=== PATIENT | male | born 1930 | race Caucasian/White ===

== ENCOUNTER 2017-11-23 18:04 | Inpatient (IN) | payer BC, MEDICAID, MEDICARE ==
[2017-11-23] MEDS: LIDOCAINE 1% (MDV) 10 ML INJ INJ (18:30)
[2017-11-23] MEDS: morphine 4 MG/ML VIAL IV (18:41)
[2017-11-23] MEDS: LIDOCAINE 1% (MDV) 20 ML INJ INJ (18:46)
[2017-11-23 19:01] LABS: ADD MAN DIFF? NO
[2017-11-23 19:04] LABS: WHITE BLOOD COUNT 8.5 10^3/ul (4.8-10.8)
[2017-11-23 19:04] LABS: BASOPHILS % 0.4 % (0.0-2.0); EOSINOPHILS # 0.2 10^3/ul (0.0-0.5); EOSINOPHILS % 1.9 % (0.0-7.0); HEMATOCRIT 40.4 % (42.0-52.0); LYMPHOCYTES # 0.9 10^3/ul (0.8-2.9); LYMPHOCYTES % 10.8 % (15.0-51.0); MEAN CORPUSCULAR HEMOGLOBIN 29.1 pg (29.0-33.0); MEAN CORPUSCULAR HGB CONC 32.2 g/dl (32.0-37.0); MEAN CORPUSCULAR VOLUME 90.4 fl (82.0-101.0); MEAN PLATELET VOLUME 11.9 fl (7.4-10.4); MONOCYTE # 0.5 10^3/ul (0.3-0.9); MONOCYTES % 5.8 % (0.0-11.0); NEUTROPHIL # 6.8 10^3/ul (1.6-7.5); NEUTROPHILS % 80.7 % (39.0-77.0); PLATELET COUNT 130 10^3/UL (140-415); RED BLOOD COUNT 4.47 10^6/ul (4.70-6.10); RED CELL DISTRIBUTION WIDTH 14.6 % (11.5-14.5)
[2017-11-23 19:23] LABS: ANION GAP 15 (8-16); BLOOD UREA NITROGEN 29 mg/dl (7-20); CALCIUM 7.3 mg/dl (8.4-10.2); CARBON DIOXIDE 26 mmol/L (21-31); CHLORIDE 104 mmol/L (97-110); GLUCOSE 204 mg/dl (70-220); POTASSIUM 3.3 mmol/L (3.5-5.1); SODIUM 142 mmol/L (135-144)
[2017-11-23 20:22] LABS: SYN FLD MN % 3.8 &; SYN FLD PMN % 96.2 % (0.0-25.0)
[2017-11-23 20:27] LABS: FLUID GLUCOSE 150 mg/dl; FLUID TYPE SYNOVIAL FLUID
[2017-11-23 20:40] LABS: FLUID TOTAL PROTEIN 4.5 g/dl
[2017-11-23 20:50] LABS: SYN FLD WBC 39340 /cmm (0-150)
[2017-11-23 20:51] LABS: SYN FLD SOURCE LEFT KNEE
[2017-11-23 20:51] LABS: SYN FLD CLARITY BLOODY; SYN FLD COLOR RED; SYN FLD CRYSTALS URIC ACID CRYSTALS (None seen)
[2017-11-23] MEDS ORDERED: CEFTRIAXONE 2 GM/50 ML (PMX) 50 ML IVPB (21:00)
[2017-11-23] MEDS: HYDROCODONE/APAP (5/325) TAB PO (21:23)
[2017-11-23] MEDS: CIPROFLOXACIN 400MG/D5W 200 ML IVPB (21:24)
[2017-11-23] MEDS ORDERED: ACETAMINOPHEN 325 MG TAB PO (21:30)
[2017-11-23] MEDS ORDERED: ONDANSETRON 4 MG INJ IV (21:30)
[2017-11-23 21:35] LABS: C-REACTIVE PROTEIN 21.8 mg/dl (0.0-0.9)
[2017-11-23 22:09] LABS: FLUID LD 4846 U/L; FLUID TYPE SYNOVIAL FLUID
[2017-11-23 22:14] LABS: ERYTHROCYTE SEDIMENTATION RATE 59 mm/Hr (0-20)
[2017-11-23] MEDS: VANCOMYCIN 1 GM (PMX) 250 ML IVPB (22:36)
[2017-11-24] MEDS ORDERED: ALBUTEROL/IPRATROPIUM (NEB) 3 ML AMP HHN (01:30)
[2017-11-24] MEDS ORDERED: ACETAMINOPHEN 325 MG TAB PO (01:30)
[2017-11-24] MEDS ORDERED: ALPRAZOLAM 0.5 MG TAB PO (01:30)
[2017-11-24] MEDS ORDERED: NACL 0.9% 3 ML SYG IV (01:30)
[2017-11-24] MEDS: HYDROCODONE/APAP (5/325) TAB PO ×4 (04:54→23:29)
[2017-11-24] MEDS: PANTOPRAZOLE (EC) 40 MG TAB PO (06:16)
[2017-11-24] MEDS ORDERED: AMIKACIN IV PER PHARMACY XX (09:00)
[2017-11-24] MEDS ORDERED: VANCOMYCIN IV PER PHARMACY XX (09:00)
[2017-11-24] MEDS: VANCOMYCIN 1 GM 250 ML IVPB (09:01)
[2017-11-24] MEDS: METOPROLOL (XL) 100 MG TAB PO ×2 (09:02→21:11)
[2017-11-24] MEDS: NIACIN 500 MG TAB PO (09:03)
[2017-11-24] MEDS: MESALAMINE (EC) 400 MG CAP PO ×2 (09:03→21:10)
[2017-11-24] MEDS: AMLODIPINE 5 MG TAB PO (09:03)
[2017-11-24] MEDS: FUROSEMIDE 40 MG TAB PO (09:03)
[2017-11-24] MEDS: LISINOPRIL 20 MG TAB PO (09:03)
[2017-11-24] MEDS: APIXABAN 5 MG TABLET PO ×2 (09:12→21:11)
[2017-11-24] MEDS: AMIKACIN 400 MG in SOD CHLORIDE 0.9% 100 ML IVPB (11:00)
[2017-11-24 12:15] LABS: ADD UMIC YES; UR ASCORBIC ACID NEGATIVE (NEGATIVE); UR BACTERIA FEW /HPF (NONE SEEN); UR BILIRUBIN (Dip) NEGATIVE (NEGATIVE); UR BLOOD (Dip) 1+ mg/dL (NEGATIVE); UR CLARITY CLEAR (CLEAR); UR COLOR YELLOW (YELLOW); UR GLUCOSE (Dip) NEGATIVE (NEGATIVE); UR KETONES (Dip) NEGATIVE (NEGATIVE); UR LEUKOCYTE ESTERASE (Dip) NEGATIVE Leu/ul (NEGATIVE); UR NITRITE (Dip) NEGATIVE (NEGATIVE); UR RBC 1 /HPF (0-5); UR SPECIFIC GRAVITY (Dip) 1.019 (1.003-1.030); UR TOTAL PROTEIN (Dip) 2+ mg/dl (NEGATIVE); UR UROBILINOGEN (Dip) 2+ mg/dL (NEGATIVE); UR WBC 1 /HPF (0-5)
[2017-11-24 12:27] LABS: CREATININE,URINE RANDOM 144.16 mg/dl (20-370)
[2017-11-24 12:27] LABS: SODIUM,URINE RANDOM 59 mmol/L (30-90)
[2017-11-24] MEDS: predniSONE 20 MG TAB PO ×2 (16:05→21:12)
[2017-11-24] MEDS: COLCHICINE 0.6 MG TAB PO ×2 (17:29→21:10)
[2017-11-24] MEDS: CIPROFLOXACIN 250 MG TAB PO (17:29)
[2017-11-24] MEDS: LATANOPROST 0.005% 2.5 ML OPH BOTH EYES (21:09)
[2017-11-24] MEDS: ATORVASTATIN 80 MG TAB PO (21:10)
[2017-11-24] MEDS: TAMSULOSIN (SR) 0.4 MG CAP PO (21:11)
[2017-11-25] MEDS: PANTOPRAZOLE (EC) 40 MG TAB PO (05:52)
[2017-11-25] MEDS: CIPROFLOXACIN 250 MG TAB PO (05:52)
[2017-11-25] MEDS: HYDROCODONE/APAP (5/325) TAB PO ×2 (05:52→20:25)
[2017-11-25 06:15] LABS: ADD MAN DIFF? NO
[2017-11-25 06:21] LABS: ABNORMAL IP MESSAGE 1; EOSINOPHILS % 0.2 % (0.0-7.0); HEMATOCRIT 38.3 % (42.0-52.0); HEMOGLOBIN 12.2 g/dl (14.0-18.0); LYMPHOCYTES # 0.5 10^3/ul (0.8-2.9); LYMPHOCYTES % 5.5 % (15.0-51.0); MEAN CORPUSCULAR HGB CONC 31.9 g/dl (32.0-37.0); MEAN PLATELET VOLUME 12.9 fl (7.4-10.4); MONOCYTE # 0.1 10^3/ul (0.3-0.9); MONOCYTES % 1.7 % (0.0-11.0); NEUTROPHIL # 7.5 10^3/ul (1.6-7.5); NEUTROPHILS % 92.2 % (39.0-77.0); PLATELET COUNT 131 10^3/UL (140-415); POSITIVE DIFF @See below; RED BLOOD COUNT 4.21 10^6/ul (4.70-6.10); RED CELL DISTRIBUTION WIDTH 14.2 % (11.5-14.5)
[2017-11-25 06:21] LABS: WHITE BLOOD COUNT 8.2 10^3/ul (4.8-10.8)
[2017-11-25 07:02] LABS: ALANINE AMINOTRANSFERASE 12 IU/L (13-69); ALBUMIN 3.4 g/dl (3.3-4.9); ALBUMIN/GLOBULIN RATIO 0.87; ALKALINE PHOSPHATASE 87 IU/L (42-121); ANION GAP 14 (8-16); ASPARTATE AMINO TRANSFERASE 22 IU/L (15-46); BILIRUBIN,INDIRECT 1.2 mg/dl (0-1.1); BILIRUBIN,TOTAL 1.2 mg/dl (0.2-1.3); BLOOD UREA NITROGEN 39 mg/dl (7-20); CARBON DIOXIDE 29 mmol/L (21-31); CHLORIDE 104 mmol/L (97-110); CHOL/HDL RATIO 4.9 RATIO; CHOLESTEROL 129 mg/dl (100-200); CREATININE 2.36 mg/dl (0.61-1.24); GLUCOSE 192 mg/dl (70-220); HDL CHOLESTEROL 26 mg/dl (31-75); LDL CHOLESTEROL,CALCULATED 87 mg/dl; PHOSPHORUS 3.6 mg/dl (2.5-4.9); POTASSIUM 4.1 mmol/L (3.5-5.1); SODIUM 143 mmol/L (135-144); TOTAL PROTEIN 7.3 g/dl (6.1-8.1); TRIGLYCERIDES 80 mg/dl (0-149)
[2017-11-25 07:33] LABS: MAGNESIUM 0.5 mg/dl (1.7-2.5)
[2017-11-25] MEDS: VANCOMYCIN 1 GM 250 ML IVPB (08:10)
[2017-11-25] MEDS: METOPROLOL (XL) 100 MG TAB PO ×2 (08:36→20:23)
[2017-11-25] MEDS: predniSONE 20 MG TAB PO ×2 (08:37→20:23)
[2017-11-25] MEDS: COLCHICINE 0.6 MG TAB PO ×3 (08:37→20:21)
[2017-11-25] MEDS: AMLODIPINE 5 MG TAB PO (08:37)
[2017-11-25] MEDS: APIXABAN 5 MG TABLET PO ×2 (08:37→20:22)
[2017-11-25] MEDS: MESALAMINE (EC) 400 MG CAP PO ×2 (08:37→20:21)
[2017-11-25] MEDS: NIACIN 500 MG TAB PO (08:37)
[2017-11-25 09:01] LABS: HEMOGLOBIN A1C 6.8 % (0-5.9)
[2017-11-25 09:09] LABS: URIC ACID 8.2 mg/dl (3.1-7.9)
[2017-11-25] MEDS: MAGNESIUM SULFATE 4 GM/100 ML 100 ML IVPB (09:25)
[2017-11-25] MEDS ORDERED: MAGNESIUM SULFATE 3 GM in DEXTROSE 5% 100 ML IVPB (09:30)
[2017-11-25] MEDS: DOCUSATE SODIUM 100 MG CAP PO ×2 (12:00→20:22)
[2017-11-25] MEDS: DIGOXIN 0.125 MG TAB PO (13:02)
[2017-11-25] MEDS: SOD CHLORIDE 0.45% 1,000 ML IV ×2 (13:03→22:00)
[2017-11-25 13:21] LABS: CREATININE, RANDOM URINE 168 mg/dL (20-370); MICROALBUMIN 18.9 mg/dL; MICROALBUMIN/CREATININE RATIO 113 (<30)
[2017-11-25] MEDS: LATANOPROST 0.005% 2.5 ML OPH BOTH EYES (20:20)
[2017-11-25] MEDS: TAMSULOSIN (SR) 0.4 MG CAP PO (20:22)
[2017-11-25] MEDS: ATORVASTATIN 80 MG TAB PO (20:23)
[2017-11-26] MEDS: SOD CHLORIDE 0.45% 1,000 ML IV ×2 (02:31→18:22)
[2017-11-26] MEDS: HYDROCODONE/APAP (5/325) TAB PO ×2 (02:31→09:52)
[2017-11-26] MEDS: PANTOPRAZOLE (EC) 40 MG TAB PO (05:32)
[2017-11-26 06:20] LABS: ADD MAN DIFF? NO
[2017-11-26 06:28] LABS: BASOPHILS % 0.2 % (0.0-2.0); HEMATOCRIT 36.5 % (42.0-52.0); HEMOGLOBIN 11.9 g/dl (14.0-18.0); LYMPHOCYTES # 0.6 10^3/ul (0.8-2.9); LYMPHOCYTES % 5.1 % (15.0-51.0); MEAN CORPUSCULAR HEMOGLOBIN 28.7 pg (29.0-33.0); MEAN CORPUSCULAR HGB CONC 32.6 g/dl (32.0-37.0); MEAN PLATELET VOLUME 12.3 fl (7.4-10.4); MONOCYTE # 0.4 10^3/ul (0.3-0.9); MONOCYTES % 3.5 % (0.0-11.0); NEUTROPHILS % 90.9 % (39.0-77.0); PLATELET COUNT 190 10^3/UL (140-415); RED BLOOD COUNT 4.15 10^6/ul (4.70-6.10); RED CELL DISTRIBUTION WIDTH 14.3 % (11.5-14.5)
[2017-11-26 06:28] LABS: WHITE BLOOD COUNT 12.1 10^3/ul (4.8-10.8)
[2017-11-26 06:47] LABS: ANION GAP 17 (8-16); BLOOD UREA NITROGEN 48 mg/dl (7-20); CALCIUM 6.9 mg/dl (8.4-10.2); CARBON DIOXIDE 23 mmol/L (21-31); CHLORIDE 102 mmol/L (97-110); CREATININE 2.04 mg/dl (0.61-1.24); GLUCOSE 162 mg/dl (70-220); MAGNESIUM 1.8 mg/dl (1.7-2.5); PHOSPHORUS 3.1 mg/dl (2.5-4.9); POTASSIUM 3.9 mmol/L (3.5-5.1); SODIUM 138 mmol/L (135-144)
[2017-11-26] MEDS: NIACIN 500 MG TAB PO (09:51)
[2017-11-26] MEDS: predniSONE 20 MG TAB PO ×2 (09:51→20:58)
[2017-11-26] MEDS: DOCUSATE SODIUM 100 MG CAP PO ×2 (09:51→21:00)
[2017-11-26] MEDS: MESALAMINE (EC) 400 MG CAP PO ×2 (09:51→20:58)
[2017-11-26] MEDS: COLCHICINE 0.6 MG TAB PO ×3 (09:51→20:57)
[2017-11-26] MEDS: APIXABAN 5 MG TABLET PO ×2 (09:51→20:59)
[2017-11-26] MEDS: METOPROLOL (XL) 100 MG TAB PO ×2 (09:52→20:58)
[2017-11-26] MEDS: AMLODIPINE 5 MG TAB PO (09:53)
[2017-11-26] MEDS: MAGNESIUM SULFATE 2 GM/50 ML 50 ML IVPB (09:58)
[2017-11-26] MEDS: traMADol 50 MG TAB PO ×2 (13:54→20:59)
[2017-11-26] MEDS: ATORVASTATIN 80 MG TAB PO (20:58)
[2017-11-26] MEDS: TAMSULOSIN (SR) 0.4 MG CAP PO (20:59)
[2017-11-26] MEDS: LATANOPROST 0.005% 2.5 ML OPH BOTH EYES (21:00)
[2017-11-27] MEDS: SOD CHLORIDE 0.45% 1,000 ML IV (03:53)
[2017-11-27] MEDS: traMADol 50 MG TAB PO (04:02)
[2017-11-27 06:02] LABS: ADD MAN DIFF? NO
[2017-11-27] MEDS: PANTOPRAZOLE (EC) 40 MG TAB PO (06:06)
[2017-11-27 06:23] LABS: WHITE BLOOD COUNT 8.9 10^3/ul (4.8-10.8)
[2017-11-27 06:23] LABS: BASOPHILS % 0.1 % (0.0-2.0); HEMATOCRIT 34.8 % (42.0-52.0); HEMOGLOBIN 11.2 g/dl (14.0-18.0); LYMPHOCYTES # 0.6 10^3/ul (0.8-2.9); LYMPHOCYTES % 7.1 % (15.0-51.0); MEAN CORPUSCULAR HEMOGLOBIN 28.9 pg (29.0-33.0); MEAN CORPUSCULAR HGB CONC 32.2 g/dl (32.0-37.0); MEAN CORPUSCULAR VOLUME 89.7 fl (82.0-101.0); MEAN PLATELET VOLUME 12.2 fl (7.4-10.4); MONOCYTE # 0.3 10^3/ul (0.3-0.9); MONOCYTES % 3.5 % (0.0-11.0); NEUTROPHIL # 7.9 10^3/ul (1.6-7.5); NEUTROPHILS % 88.6 % (39.0-77.0); PLATELET COUNT 188 10^3/UL (140-415); RED BLOOD COUNT 3.88 10^6/ul (4.70-6.10); RED CELL DISTRIBUTION WIDTH 14.3 % (11.5-14.5)
[2017-11-27 07:05] LABS: ANION GAP 18 (8-16); BLOOD UREA NITROGEN 52 mg/dl (7-20); CALCIUM 6.6 mg/dl (8.4-10.2); CARBON DIOXIDE 23 mmol/L (21-31); CHLORIDE 103 mmol/L (97-110); CREATININE 1.88 mg/dl (0.61-1.24); GLUCOSE 143 mg/dl (70-220); MAGNESIUM 2.2 mg/dl (1.7-2.5); PHOSPHORUS 3.6 mg/dl (2.5-4.9); POTASSIUM 4.1 mmol/L (3.5-5.1); SODIUM 140 mmol/L (135-144)
[2017-11-27] MEDS: predniSONE 20 MG TAB PO (09:31)
[2017-11-27] MEDS: COLCHICINE 0.6 MG TAB PO ×2 (09:32→13:56)
[2017-11-27] MEDS: METOPROLOL (XL) 100 MG TAB PO (09:32)
[2017-11-27] MEDS: MESALAMINE (EC) 400 MG CAP PO (09:33)
[2017-11-27] MEDS: APIXABAN 5 MG TABLET PO (09:33)
[2017-11-27] MEDS: NIACIN 500 MG TAB PO (09:34)
[2017-11-27] MEDS: AMLODIPINE 5 MG TAB PO (09:35)
[2017-11-27] MEDS: DOCUSATE SODIUM 100 MG CAP PO (09:35)
[2017-11-27] MEDS: DIGOXIN 0.125 MG TAB PO (13:56)
== END 2017-11-27 16:29 | disposition home health service (06) | DRG 554 ==
LOC: PP2 21:03 → E/R 18:04 → PP2 11-24 00:08
PROC: 0S9D3ZX Drainage of Left Knee Joint, Percutaneous Approach, Diagnostic (ICD-10-PCS; principal; 2017-11-23)
DX: M10.9 Gout, unspecified (principal); N17.9 Acute kidney failure, unspecified; L03.116 Cellulitis of left lower limb; I42.9 Cardiomyopathy, unspecified; I13.0 Hypertensive heart and chronic kidney disease with heart failure and stage 1 through stage 4 chronic kidney disease, or unspecified chronic kidney disease; N18.9 Chronic kidney disease, unspecified; Z95.810 Presence of automatic (implantable) cardiac defibrillator; E87.6 Hypokalemia; F17.200 Nicotine dependence, unspecified, uncomplicated; E83.89 Other disorders of mineral metabolism; I48.2 Chronic atrial fibrillation; Z85.01 Personal history of malignant neoplasm of esophagus; I50.9 Heart failure, unspecified; E83.42 Hypomagnesemia
CPT/HCPCS: 36415; 73562; 76775; 80048; 80053; 80061; 81001; 81003; 82043; 82945; 83036; 83615; 83735; 84100; 84155; 84157; 84300; 84560; 85025; 85651; 86140; 87070; 89060; 93971; 96374; 97162; 99285-25